=== PATIENT | male | born 1965 | race Caucasian/White ===

== ENCOUNTER 2017-08-22 20:58 | Emergency (ER) | payer BC ==
[~2017-08-22] VITALS: Ht 170.2 cm; Wt 130.0 kg
[~2017-08-22 20:58] MED LIST: CHLO.12%30 SWISH-SPIT; CLIN150 PO; HUMU70IN SQ; IBUP800T23 PO; LISI10 PO; MMW SWISH-SPIT
[2017-08-22 21:00] VITALS: BP 151/80; PULSE 77; RESP 18; TEMP 98.7; O2SAT 97
--- NOTE | 2017-08-22 21:19 | PD ---
Physical Exam Date Seen by Provider: Aug 22, 2017 Time Seen by Provider: 21:16 Narrative 52-year-old male presents with right neck and shoulder pain. Patient states he's had it in the past, but this time is much worse in the last 2 times. She states this started in December when he was trying on the toilet. Then again when he was removing groceries from the car, and then again recently after moving a suitcase. Current pain has been worsening over the past 3 days. It is specifically worse with movement with pain into the right arm. His pain is also worse with rotation of the neck to the right or left. Patient is a type II diabetic who uses insulin. Patient denies nausea, vomiting, or abdominal pain. He does not feel physically short of breath. Pain is currently 9 and 10. He is allergic to penicillin. Vital signs are reviewed. Patient is awaiting bed placement. Data Data Last Documented VS Vital Signs Date Time Temp Pulse Resp B/P (MAP) Pulse Ox O2 Delivery O2 Flow Rate FiO2 08/22/17 21:00 98.7 77 18 151/80 (103) 97 Room Air [facility] Medical Record Reviewed: Yes Supervised Visit with CHRISTINA: Yes Condition: Stable Octavio Vieyra Aug 22, 2017 21:19
[2017-08-22] MEDS ORDERED: ZOLO100T PO (21:57)
[2017-08-22] MEDS ORDERED: LOPE2CAP PO (21:57)
[2017-08-22] MEDS ORDERED: LISI-519 PO (21:57)
[2017-08-22] MEDS ORDERED: PROT40TA PO (21:57)
[2017-08-22] MEDS ORDERED: SILD20TA11 PO (21:57)
[2017-08-22] MEDS ORDERED: FLUD.1 PO (21:57)
[2017-08-22] MEDS ORDERED: TAMS0.4C4 PO (21:57)
[2017-08-22] MEDS ORDERED: GABA400C5 PO (21:57)
[2017-08-22] MEDS ORDERED: FLUT1SPR5 EACH NARE (21:57)
[2017-08-22] MEDS ORDERED: AMBI6.25 PO (21:57)
[2017-08-22] MEDS ORDERED: GLYB5TAB3 PO (21:57)
[2017-08-22] MEDS ORDERED: CYCLOBENZAPRINE HCL 10 MG TAB PO ONE (22:00)
[2017-08-22] MEDS ORDERED: KETOROLAC TROMETHAMINE 60 MG/2 ML (IM) VIAL IM ONE (22:00)
[2017-08-22] MEDS ORDERED: CYCL1TAB29 PO (22:37)
--- NOTE | 2017-08-22 22:37 | PD ---
HPI Chief Complaint: Pain: Acute or Chronic Time Seen by Provider: 21:39 Travel History International Travel<30 days: No Contact w/Intl Traveler<30days: No Traveled to known affect area: No History of Present Illness HPI Patient is a 52-year-old male who comes in complaining of right shoulder pain. He says he has been having issues with the shoulder for the past year. It originally started after plunging a toilet. He said he exacerbated a few months ago while lifting groceries. Each time it has gone away. This time about 3 days ago, he was moving some luggage around when the pain started. He is tried Tylenol at home without any relief. He denies any new injury. Denies any direct trauma. Denies any chest pain or shortness of breath. 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 crazy as a bed bug") Reproductive: No Respiratory: No Pancreatitis: Yes Past Surgical History Tonsillectomy: Yes Social History Alcohol Use: No Tobacco Use: No Substance Use: Yes (marijuana as a teen ) Allergies-Medications (Allergen,Severity, Reaction): Coded Allergies: penicillin G (Unverified Allergy, Unknown, 08/22/17) Reported Meds & Prescriptions Reported Meds & Active Scripts Active Reported Ambien CR (Zolpidem Tartrate) 6.25 Mg Tab 6.25 Mg PO HS PRN Zoloft (Sertraline HCl) 100 Mg Tab 100 Mg PO DAILY Protonix (Pantoprazole Sodium) 40 Mg Tab 40 Mg PO DAILY Loperamide (Loperamide HCl) 2 Mg Cap 2 Mg PO DIRECTED PRN One capsule after each loose stool. Not to exceed 8 capsules per day. Lisinopril 5 Mg Tab 5 Mg PO DAILY Gabapentin 400 Mg Cap 600 Cap PO DAILY Flonase Nasal Preston (Fluticasone Nasal Preston) 50 Mcg/Act Preston 50 Mcg EACH NARE DAILY Fludrocortisone (Fludrocortisone Acetate) 0.1 Mg Tab 0.2 Mg PO DAILY Glyburide 5 Mg Tab 10 Mg PO DAILY Take with meals at the same time each day Tamsulosin (Tamsulosin HCl) 0.4 Mg Cap 0.4 Mg PO HS Sildenafil 20 Mg Tab 20 Mg PO DIRECTED Review of Systems General / Constitutional: No: Fever, Chills HENT: No: Headaches, Lightheadedness Cardiovascular: No: Chest Pain or Discomfort Respiratory: No: Shortness of Breath Gastrointestinal: No: Nausea, Vomiting Musculoskeletal: Positive: Pain, No: Edema Skin: No Rash, No Change in Pigmentation Neurologic: No: Weakness, Dizziness Physical Exam Narrative GENERAL: Awake and alert, in no acute distress. SKIN: Focused skin assessment warm/dry. HEAD: Atraumatic. Normocephalic. EYES: Pupils equal and round. No scleral icterus. No injection or drainage. ENT: Mucous membranes pink and moist. CARDIOVASCULAR: Regular rate and rhythm. No murmur appreciated. RESPIRATORY: No accessory muscle use. Clear to auscultation. Breath sounds equal bilaterally. MUSCULOSKELETAL: No obvious deformities. No clubbing. No cyanosis. No edema. Tenderness to palpation of the right trapezius muscle and all around the right shoulder. Pain with movement of the right shoulder. Radial pulse intact. NEUROLOGICAL: Awake and alert. No obvious cranial nerve deficits. Motor grossly within normal limits. Normal speech. Data Data Last Documented VS Vital Signs Date Time Temp Pulse Resp B/P (MAP) Pulse Ox O2 Delivery O2 Flow Rate FiO2 08/22/17 21:00 98.7 77 18 151/80 (103) 97 Room Air Orders Orders Ketorolac Inj (Toradol Inj) (08/22/17 22:00) Cyclobenzaprine (Flexeril) (08/22/17 22:00) [facility] Medical Decision Making Medical Screen Exam Complete: Yes Emergency Medical Condition: Yes Differential Diagnosis Shoulder strain versus muscle spasm versus rotator cuff injury Narrative Course Patient is a 52-year-old male comes in complaining of shoulder pain. Exam shows pain with movement and tenderness to the muscles around the shoulder. Patient given Toradol and Flexeril. We'll discharge with a prescription for Flexeril. He is advised follow-up with his doctor and orthopedics. Advised to return to the ED as needed for any worsening symptoms. Diagnosis Primary Impression: Right shoulder strain Qualified Codes: S46.911A - Strain of unspecified muscle, fascia and tendon at shoulder and upper arm level, right arm, initial encounter Patient Instructions: General Instructions, Shoulder Sprain (ED) Additional Instructions: Take Tylenol and Flexeril as needed for pain. Alternate ice and heat to the area. Make sure you stretch often. Follow up with your doctor and orthopedics. Return to the ED as needed for any worsening symptoms. Scripts Cyclobenzaprine (Flexeril) 10 Mg Tab 10 MG PO TID for Muscle Spasm, #15 TAB 0 Refills Prov: Karla Mendez MD 08/22/17 Disposition: 01 DISCHARGE HOME Condition: Stable Karla Mendez MD Aug 22, 2017 22:37
== END 2017-08-23 00:04 | disposition home or self-care (01) ==
LOC: NEPD 20:58
DX: S46.911A Strain of unspecified muscle, fascia and tendon at shoulder and upper arm level, right arm, initial encounter (principal); X50.1XXA Overexertion from prolonged static or awkward postures, initial encounter; E11.9 Type 2 diabetes mellitus without complications; Z79.4 Long term (current) use of insulin
CPT/HCPCS: 96372; 99284; J1885